=== PATIENT | male | born 2000 | race Caucasian/White ===

== ENCOUNTER 2022-01-24 16:50 | Emergency (ER) | payer OTHER ==
--- NOTE | 2022-01-24 17:42 | XR ---
EXAMINATION TYPE: XR chest 2V DATE OF EXAM: 01/24/2022 5:31 PM COMPARISON: Chest radiographs from 07/18/2009 TECHNIQUE: XR chest 2V Frontal and lateral views of the chest. CLINICAL INDICATION:Male, 21 years old with history of cough; FINDINGS: Lungs/Pleura: There is no evidence of pleural effusion, focal consolidation, or pneumothorax. Pulmonary vascularity: Unremarkable. Heart/mediastinum: Cardiomediastinal silhouette is unremarkable. Musculoskeletal: No acute osseous pathology. IMPRESSION: No acute cardiopulmonary disease/process.
[2022-01-24] MEDS ORDERED: FLUTICASONE 50MCG/SPRAY NASAL 16GM EA NOSTRIL STA (18:32)
[2022-01-24] MEDS ORDERED: IBUPROFEN 800 MG TAB PO STA (18:33)
--- NOTE | 2022-01-24 18:33 | ED ---
URI HPI - General Chief Complaint: Upper Respiratory Infection Stated Complaint: URI Time Seen by Provider: 01/24/22 17:45 Source: patient Mode of arrival: ambulatory - History of Present Illness Initial Comments: Patient is a 21-year-old male who presents to the emergency department with upper respiratory symptoms. Symptoms started on Thursday and has been improving however patient reports dry cough at night that sometimes makes him feel short of breath. He denies fever, chest pain, vomiting. He reports congestion and headache. Denies history of asthma. - Related Data Allergies Allergy/AdvReac Type Severity Reaction Status Date / Time No Known Allergies Allergy Verified 01/24/22 17:23 Review of Systems ROS Statement: Those systems with pertinent positive or pertinent negative responses have been documented in the HPI. ROS Other: All systems not noted in ROS Statement are negative. Past Medical History Past Medical History: No Reported History History of Any Multi-Drug Resistant Organisms: None Reported Past Surgical History: No Surgical Hx Reported Past Psychological History: No Psychological Hx Reported Past Alcohol Use History: None Reported Past Drug Use History: None Reported General Exam General appearance: alert, in no apparent distress Head exam: Present: atraumatic, normocephalic, normal inspection Eye exam: Present: normal appearance, PERRL, EOMI. Absent: scleral icterus, conjunctival injection, periorbital swelling Respiratory exam: Present: normal lung sounds bilaterally. Absent: respiratory distress, wheezes, rales, rhonchi, stridor Cardiovascular Exam: Present: regular rate, normal rhythm, normal heart sounds. Absent: systolic murmur, diastolic murmur, rubs, gallop, clicks Neurological exam: Present: alert, oriented X3, CN II-XII intact Psychiatric exam: Present: normal affect, normal mood Skin exam: Present: warm, dry, intact, normal color. Absent: rash Course Vital Signs 01/24/22 01/24/22 17:20 18:46 Temperature 98.1 F 97.9 F Pulse Rate 88 89 Respiratory 16 18 Rate Blood Pressure 143/88 130/79 O2 Sat by Pulse 100 96 Oximetry Medical Decision Making - Medical Decision Making This is a 21-year-old presenting with upper respiratory symptoms. No normal lung sounds. Afebrile. COVID-19, RSV, influenza are not detected. Chest x-ray obtained and interpreted by me which is negative for acute process. Patient looks well and will be sent home with nasal spray. Also discussed conservative management. Dr. Villalobos is my attending. - Lab Data Lab Results 01/24/22 Range/Units 17:24 Influenza Type A (PCR) Not Detected (Not Detectd) Influenza Type B (PCR) Not Detected (Not Detectd) RSV (PCR) Not Detected (Not Detectd) SARS-CoV-2 (PCR) Not Detected (Not Detectd) Disposition Clinical Impression: Common cold Disposition: HOME SELF-CARE Condition: Good Instructions (If sedation given, give patient instructions): Upper Respiratory Infection (ED) Additional Instructions: For COVID-19, influenza A, and RSV testing today were negative. Use nasal spray twice a day. Take Motrin as directed. Warm showers, baths, and use of humidifiers can help prevent congestion. Follow-up with primary care provider in one to 2 days. Return to the emergency department if you experience new, concerning, or worsening symptoms. Is patient prescribed a controlled substance at d/c from ED?: No Referrals: Binh Sears DO [Primary Care Provider] - 1-2 days Time of Disposition: 18:34
[2022-01-24 18:48] VITALS: BP 130/79; PULSE 89; RESP 18; TEMP 97.9
== END 2022-01-24 18:49 | disposition home or self-care (01) ==
LOC: EC 16:50
DX: J00 Acute nasopharyngitis [common cold] (principal); Z20.822 Contact with and (suspected) exposure to COVID-19
CPT/HCPCS: 71046; 87636; 99283